=== PATIENT | female | born 1985 | race Caucasian/White ===

== ENCOUNTER 2018-04-26 08:34 | Inpatient (IN) | payer OTHER ==
[~2018-04-26] VITALS: Ht 162.6 cm; Wt 83.9 kg
[2018-04-26] MEDS ORDERED: BUPRENORPHINE HC8 MG SL (09:16)
[2018-04-26] MEDS ORDERED: PRENATAL TABLE1 EAC2 PO (09:16)
[2018-04-26] MEDS ORDERED: NICODERM CQ1 EAC1 TOP (09:17)
--- NOTE | 2018-04-26 09:24 | PN- OBGYN ---
Surgical Brief Attending Note Brief Attending Note: Patient is a 32 year old female with complicated by substance abuse for induction of labor secondary to favorable cervix at term. Consent for induction obtained and misoprostol and donovan placed just now. 2/50/-1/soft/mid position. Patient states took 8 mg buprenorphine in the am and takes three times daily. I did speak with her provider Dr Velasquez of [facility] and confirmed dose of 26 mg daily. All questions answered regarding induction process and potential length of time. Allow regular diet until active labor. Ambulation per protocol. Discussed plan of care with Nursing. NRT to start today 14 mg for patient.
[2018-04-26 10:43] LABS: ABSOLUTE BASOPHIL COUNT 0 /CUMM (0.0-0.2); ABSOLUTE EOSINOPHIL COUNT 0 /CUMM (0.0-0.7); ABSOLUTE GRANULOCYTE CT 5.3 /CUMM (1.4-6.5); ABSOLUTE LYMPH COUNT 1.7 /CUMM (1.2-3.4); ABSOLUTE MONOCYTE COUNT 0.6 /CUMM (0.10-0.60); BASOPHIL % 0.3 % (0.0-2.0); EOSINOPHIL % 0.3 % (0-5); GRANULOCYTE % 69.5 % (42.2-75.2); HEMATOCRIT 34.5 % (37-47); MEAN CORPUSCULAR HGB 30.1 PG (27.0-31.0); MEAN CORPUSCULAR HGB CONC 34.5 G/DL (33.0-37.0); MEAN CORPUSCULAR VOLUME 87.3 FL (81.0-99.0); MEAN PLATELET VOLUME 8.4 FL (7.4-10.4); PLATELET COUNT 238 /CUMM (130-400); RBC DISTRIBUTION WIDTH 14.5 % (11.5-14.5); RED BLOOD CELL CT 3.96 /CUMM (4.20-5.40); WHITE BLOOD CELL COUNT 7.7 /CUMM (4.8-10.8)
--- NOTE | 2018-04-26 12:11 | History & Physical ---
General Information and HPI MD Statement: I have seen and personally examined SH[facility] and documented this H&P. The patient is a 32 year old female at 39 weeks and 4 days gestation who presented with a chief complaint of induction of labor. Source of Information: patient, old records Exam Limitations: no limitations History of Present Illness: Patient is a 32 year old female with complicated by substance abuse and tobacco use for induction of labor secondary to favorable cervix at term. Denies rupture of membranes and noted good movement. 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 Home Who Do You Live With? spouse Primary Language: British Smoking Status: Current Everyday Smoker ETOH Use: denies use Illicit Drug Use: marijuana Living Will? no Power of Pulmonary Physical Therapist/HCP? no Other Social History: NA Employment History Employment Unemployed Review of Systems Review of Systems Constitutional: Denies: no symptoms. EENTM: Denies: no symptoms. Cardiovascular: Denies: no symptoms. Respiratory: Denies: no symptoms. GI: Denies: no symptoms. Genitourinary: Denies: no symptoms. Musculoskeletal: Denies: no symptoms. Skin: Denies: no symptoms. Neurological/Psychological: Denies: no symptoms. Hematologic/Endocrine: Denies: no symptoms. Immunologic/Allergic: Denies: no symptoms. Post Menopausal: No Date of Last Pap Smear: 11/30/15 Exam & Diagnostic Data Last 24 Hrs of Vital Signs/I&O Intake & Output 04/26 1600 04/26 0800 04/26 0000 Intake Total Output Total Balance Patient 83.915 kg Weight Obstetric Exam Wgt Gained During : 36 lbs Pelvimetry: Gynecoid Dilation (cm): 2 Effacement (%): 50 Station: -1 Membranes: intact Fluid: Intact Fundal Height (cm): 38 Multiple Gestation? No Contractions: Irregular q 10 Infant #1 - FHR Baseline: 130 Category: 1 Estimated Weight: 2966 grams on 04/22/18 Presentation: Cephalic Patient for Induction? Yes Kinsey Score Kinsey Score Response Value Cervix Position: mid-position 1 Cervix Consistency: soft 2 Cervix Effacement: 30-50% 1 Cervix Dilation: 1-2 cm 1 Cervix Station: -1 2 Total 7 Labs Blood Type & Rh: O positive Antibody Screen: negative Hct/Hgb & Platelets #1: 42/241 Hct/Hgb & Platelets #2: 33.6/249 Rubella: immune VDRL #1: negative VDRL #2: negaitve HbsAg: negative HIV #1: negative HIV #2 negative 1 Hr P 3 Hr PG: NA Group B Strep: negative Initial Ultrasound: wnl Anatomy Ultrasound: Level 2 wnl except for marginal cord insertion Ultrasound for EFW: 2966 grams on 04/22/1818 Grade 3 placenta Cephalic presentation Genetic Testing: Panorama wnl and AFP normal Last 24 Hrs of Labs/Siva: Laboratory Tests 04/26/18 0910: CBC w Diff NO MAN DIFF REQ, RBC 3.96 L, MCV 87.3, MCH 30.1, MCHC 34.5, RDW 14.5 , MPV 8.4, Gran % 69.5, Lymphocytes % 22.0, Monocytes % 7.9, Eosinophils % 0.3, Basophils % 0.3, Absolute Granulocytes 5.3, Absolute Lymphocytes 1.7, Absolute Monocytes 0.6, Absolute Eosinophils 0, Absolute Basophils 0, Urine Opiates Screen < 100, Methadone Screen < 40, Barbiturate Screen < 60, Ur Phencyclidine Scrn < 6.00, Amphetamines Screen < 100, U Benzodiazepines Scrn < 85, Urine Cocaine Screen < 50, Urine Cannabis Screen 9.60, Urinalysis MANY H, Urine Color DENNIS, Urine Clarity HAZY H, Urine pH 7.0, Ur Specific Hoskins 1.020, Urine Protein TRACE H, Urine Ketones NEG, Urine Nitrite NEG, Urine Bilirubin NEG, Urine Urobilinogen 0.2, Ur Leukocyte Esterase SMALL H, Ur Microscopic SEDIMENT EXAMINED, Urine RBC RARE, Urine WBC 10-15 H, Ur Epithelial Cells PACKD H, Urine Bacteria RARE H, Urine Mucus RARE, Urine Hemoglobin NEG, Urine Glucose NEG Assessment/Plan Assessment/Plan: 32 year old female with history of substance abuse and tobacco use on subutex for induction of labor secondary to kinsey of 7 at term. Substance abuse. Urine toxicology confirms buprenorphine and THC. Level of THC now lower than when done at [facility] in March. I discussed plan of care regarding pain mgmt with the patient. Epidural recommended and will place earlier as not a candidate for labor analgesia and or Nitrous. If Csection indicated will maintain on subutex and use narcotics at lower levels and use Nsaids and and IV acetaminophen and TAP block as well. 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 To give Subutex 8 mg TID while hospitalized and watch for signs of withdrawl. Most likely will go down in dose after delivery when volume of distribution changes. I discussed hospital Pediatric care requirements for withdrawl. This child will be observed for at least 96 hours. She may breast feed. Discussed adverse effects of THC as it is excreted in the breast milk. She will also be on the NRT to avoid another withdrawl effect on the . This also to reduce her cravings from tobacco. I will discuss labor pain mgmt strategy with Anesthesiology team today. Induction. Favorable cervix. I placed a misoprostol and donovan for induction process. This to shorten the induction the delivery time and with no increase in risk for csection. Gynecoid pelvis with appropriate for gestational age fetus. Goal also to reduce RR of preeclampsia and oligohydramnios and meconium stained fluid and stillbirth if delivered now vs that of expectant mgmt. Risks of induction being pain, abnormal heart rate, pyrexia and need for csection. GBBS negative so no antibiotics needed at present. May have regular diet until active labor. VTE precautions with ambulation until active labor than alps. If csection than lovenox . Tobacco use. NRT daily with 14 mg patch. S/p influenza 10/29/17, tdap 02/14/18 and pneumococcal 11/08/17 vaccines this . Face to face hospital time 45 minutes. All questions answered. Patient and partner offered no questions. As Ranked By This Provider Problem List: 1. Substance abuse affecting in third trimester, antepartum 2. Tobacco use complicating Core Measures Venous Thromboembolism VTE Risk Factors / No Mechanical VTE Prophylaxis d/t N/A MechProphylax Ordered No VTE Pharm Prophylaxis d/t Other (Alps to be used)
--- NOTE | 2018-04-26 14:35 | PN- OBGYN ---
Surgical Brief Attending Note Brief Attending Note: States that cramps have lessened. Misoprostol #2 (25 micrograms) placed in vaginal fornix. Catagory 1 tracing Contraction pattern q5-[address] #3 dose in appx 4 hours.
--- NOTE | 2018-04-26 18:05 | PN- OBGYN ---
Surgical Brief Attending Note Brief Attending Note: Patient getting more uncomfortable Afebrile VSS Catagory 1 tracing /0 station Intact membranes Hct 34.5 Platelets 238 and O positive Active labor at present Epidural requested Ghosh displaced earlier when using bathroom No need for additional misoprostol and most likely no oxytocin will be needed either unless clinically indicated. Anticipate vaginal . Peds to be present given subutex.
--- NOTE | 2018-04-26 19:59 | PN- OBGYN ---
Surgical Brief Attending Note Brief Attending Note: Fully dilated +1 and +2 with pushing. Intact forewaters and no molding appreciated Catagory 2 to 1 tracing with position changes Pediatrics contacted Anticipate vaginal
--- NOTE | 2018-04-26 21:22 | Labor & Delivery Summary ---
Delivery Summary Vaginal Delivery: Vaginal: spontaneous Episiotomy/Lacerations: Episiotomy/Lacerations: 2nd degree fourchette Type: as listed Repair: running suture Anesthesia: epidural Placenta: Placenta: spontanteous, abnormal, Villamentous cord insertion (3 vessel) Anesthesia: epidural Cord PH Value: 7.34 Baby's Weight: [id number] Apgars - 1 Min: 9 Apgars - 5 Min: 9 Additional Comments: Left shoulder anterior No nuchal cord Shoulder passed spontaneously Peds present Mild atony after placental passage and uterus responded to oxytocin and methergine Laceration repaired Rectum intact EBL 400 cc
[2018-04-26 22:50] VITALS: BP 116/67
--- NOTE | 2018-04-27 08:45 | PN- OBGYN ---
Surgical Brief Attending Note Brief Attending Note: Seen and evaluated Comfortable in bed tending to her No complaints and states "took a motrin and pain is okay; better than the contractions from last night" Vitals stable Aox3 PPD#1 s/p induction for favorable cervix at term and substance abuse 1) Substance abuse history. Continue on Subutex daily. No symptoms of withdrawal nor sedation. Continue on nicotine replacement therapy daily. Will have follow up at [facility] in one week to reevaluate dosing. She is a candidate now for Suboxone. 2) Advance diet and vitamin supplementation 3) Breast feeding counseling provided.
[2018-04-27 08:48] LABS: ABSOLUTE BASOPHIL COUNT 0 /CUMM (0.0-0.2); ABSOLUTE EOSINOPHIL COUNT 0 /CUMM (0.0-0.7); ABSOLUTE GRANULOCYTE CT 9.8 /CUMM (1.4-6.5); ABSOLUTE LYMPH COUNT 1.2 /CUMM (1.2-3.4); ABSOLUTE MONOCYTE COUNT 0.8 /CUMM (0.10-0.60); BASOPHIL % 0.2 % (0.0-2.0); EOSINOPHIL % 0.1 % (0-5); GRANULOCYTE % 82.4 % (42.2-75.2); HEMATOCRIT 30.4 % (37-47); MEAN CORPUSCULAR HGB 29.7 PG (27.0-31.0); MEAN CORPUSCULAR HGB CONC 33.9 G/DL (33.0-37.0); MEAN CORPUSCULAR VOLUME 87.6 FL (81.0-99.0); MEAN PLATELET VOLUME 8.5 FL (7.4-10.4); PLATELET COUNT 221 /CUMM (130-400); RBC DISTRIBUTION WIDTH 14.7 % (11.5-14.5); RED BLOOD CELL CT 3.47 /CUMM (4.20-5.40)
[2018-04-27 08:58] LABS: WHITE BLOOD CELL COUNT 11.9 /CUMM (4.8-10.8)
--- NOTE | 2018-04-28 09:14 | Discharge Summary ---
Visit Information Visit Dates Admission Date: 04/26/18 Discharge Date: 04/28/18 Hospital Course Course Attending Physician: Frank Ulloa MD Primary Care Physician: Patient Has No Primary Care Other Care Providers: Dr Ravinder Velasquez Hospital Course: S/p admission for induction of labor. Successful induction and vaginal on 04/26/18. course unremarkable Complications: None Allergies: Coded Allergies: No Known Allergies (08/26/17) Significant Procedures: Vaginal Pertinent Lab Results: Rh positive Urine culture negative Hct 30.4 Disposition Summary Disposition Principal Diagnosis: Additional Diagnosis: Substance abuse Tobacco dependence Discharge Disposition: home or self care Discharge Instructions General Discharge Information Code Status: Full Code Patient's Diet: Regular Patient's Activity: As tolerated Follow-Up Instructions/Appts: Patient's will be hospitalized for 96 hours from . One week follow up to Dr Velasquez (Addiction Medicine) Four weeks to Dr Ulloa Six weeks for IUD Medications at Discharge Discharge Medications: Continue taking these medications: Buprenorphine (Buprenorphine HCl) 8 MG TAB.SUBL 1 Tablet SUBLINGUAL THREE TIMES DAILY Vit No.130/Iron/FA ( Tablet) 27 MG IRON-800 MCG TABLET 1 Tablet ORAL DAILY Nicotine (Nicoderm Cq) 14 MG/24 HOUR PATCH.TD24 1 Patch On the skin DAILY Copies To: Frank Ulloa MD Attending Review Statement Documenting Attending: Frank Ulloa MD Other Findings: Seen and evaluated Doing well without complaint Breast feeding and bonding well with per Nursing AVSS Abdomen soft and fundus firm No peripheral edema Breast feeding counseling Continue on NRT 14 mg daily Continue on Subutex but dose to be adjusted and most likely to go on Suboxone as now in non state. counseling and discussed perineal care and information provided for depresison.
[2018-04-28] MEDS ORDERED: IBUPROFEN800 M1 PO (09:58)
== END 2018-04-28 10:25 | DRG 560 ==
LOC: GNO 08:34
PROVIDERS: Obstetrics & Gynecology
PROC: 10E0XZZ Delivery of Products of Conception, External Approach (ICD-10-PCS; principal; 2018-04-26)
PROC: 0KQM0ZZ Repair Perineum Muscle, Open Approach (ICD-10-PCS; principal; 2018-04-26)
PROC: 3E0P7VZ Introduction of Hormone into Female Reproductive, Via Natural or Artificial Opening (ICD-10-PCS; principal; 2018-04-26)
DX: O70.1 Second degree perineal laceration during delivery (principal); Z3A.39 39 weeks gestation of pregnancy; Z37.0 Single live birth; O99.324 Drug use complicating childbirth; F11.20 Opioid dependence, uncomplicated; O99.334 Smoking (tobacco) complicating childbirth; F12.10 Cannabis abuse, uncomplicated; Z75.2 Other waiting period for investigation and treatment
CPT/HCPCS: GNOP; GNOS; 36415; 80307; 81001; 87086; J0571; J2210; J2310; J7120